=== PATIENT | male | born 1995 | race African-American/Black ===

== ENCOUNTER 2021-08-18 21:29 | Emergency (ER) | payer OTHER ==
[2021-08-18 21:38] VITALS: BP 132/71; PULSE 92; RESP 19; TEMP 99
[2021-08-18] MEDS ORDERED: FLUORESCEIN STRIPS 1 MG STRIP RIGHT EYE ONE (22:15)
[2021-08-18] MEDS ORDERED: PROPARACAINE 0.5% OPHTH DROPS 15 ML BTL RIGHT EYE STA (22:15)
--- NOTE | 2021-08-18 23:15 | ED ---
General Adult HPI - General Chief complaint: Eye Problems Stated complaint: RT eye pain Time Seen by Provider: 08/18/21 22:01 Source: patient, RN notes reviewed Mode of arrival: ambulatory Limitations: no limitations - History of Present Illness Initial comments: 26-year-old male presents to emergency Department with complaints of right eye irritation, onset 11:00 this morning. Patient is concerned about possible foreign body. He states he was wearing contacts at work today, as well as his safety glasses. Patient reports removing contacts prior to arrival and attempting to flush the eye. He describes discomfort as constant irritation. Patient denies fever, chills, headache, and vision changes. - Related Data Previous Rx's Medication Instructions Recorded Ofloxacin 0.3% Ophth Soln [Ocuflox 1 drops RIGHT EYE QID 10 Days #5 ml 08/19/21 Ophth Soln] Allergies Allergy/AdvReac Type Severity Reaction Status Date / Time No Known Allergies Allergy Verified 08/18/21 21:34 Review of Systems ROS Statement: Those systems with pertinent positive or pertinent negative responses have been documented in the HPI. ROS Other: All systems not noted in ROS Statement are negative. Past Medical History Past Medical History: No Reported History History of Any Multi-Drug Resistant Organisms: None Reported Past Surgical History: No Surgical Hx Reported Smoking Status: Never smoker Past Alcohol Use History: None Reported Past Drug Use History: None Reported General Exam Limitations: no limitations (Well-developed, well-nourished male in no acute distress. Initial temperature 99.0, pulse 92, respirations 16, blood pressure 132/71, pulse ox 99% on room air.) General appearance: alert, in no apparent distress Eye exam: Present: PERRL, EOMI. Absent: periorbital swelling, periorbital tenderness Pupils: Present: normal accommodation Expanded Eyelids: Normal Inspection: Bilateral Pupils: Regular, Round: Bilateral Sclera/Conjunctival: Injection: Right Visual acuity (R) = 20/: 60 Visual acuity (L) = 20/: 60 With correction: No Respiratory exam: Present: normal lung sounds bilaterally. Absent: respiratory distress, wheezes, rales, rhonchi, stridor Cardiovascular Exam: Present: regular rate, normal rhythm, normal heart sounds. Absent: systolic murmur, diastolic murmur, rubs, gallop, clicks Neurological exam: Present: alert, oriented X3, CN II-XII intact Skin exam: Present: warm, dry, intact, normal color. Absent: rash Course Vital Signs 08/18/21 21:30 Temperature 99.0 F Pulse Rate 92 Respiratory 19 Rate Blood Pressure 132/71 O2 Sat by Pulse 99 Oximetry Procedures - Procedures Initial comment: One drop of Alcaine instilled into the right eye. Fluorescein staining applied; eye examined with Wood's lamp. Focal area of uptake noted centrally. Eye thoroughly irrigated, then restrained and reexamined; same focal area of uptake noted. Findings discussed with patient and significant other. Eye care reviewed at length; instructed to refrain from further contact use until evaluated by ophthalmology. Medical Decision Making - Medical Decision Making 26-year-old male was evaluated for complaint of right eye irritation. Patient had removed his contact prior to arrival; was concerned about possible foreign body. Visual acuity was obtained, however patient did not bring his glasses therefore was unable to view the eye chart as he normally would at baseline. Fluorescein stain Saturday and was examined under Ch lamp and focal area of uptake noted centrally. Findings were discussed with patient. TD and antibiotic eye drops were recommended, patient is agreeable with this plan. Instructed to follow up with ophthalmology as soon as possible. Patient verbalizes understanding. This patient's care was discussed with my attending Dr. Augustine. Disposition Clinical Impression: Corneal abrasion, right Disposition: HOME SELF-CARE Condition: Stable Instructions (If sedation given, give patient instructions): Corneal Abrasion (ED) Additional Instructions: Do not rub your eye. Follow-up with ophthalmology for recheck; call first thing Saturday. Please do not wear contacts until you have been cleared by ophthalmology. Continue wearing safety glasses when at work Return to the emergency department with any new, worsening, or concerning symptoms. Prescriptions: Ofloxacin 0.3% Ophth Soln [Ocuflox Ophth Soln] 1 drops RIGHT EYE QID 10 Days #5 ml Is patient prescribed a controlled substance at d/c from ED?: No Referrals: None,Stated [Primary Care Provider] - 1-2 days Melquiades Lei MD [STAFF PHYSICIAN] - 1-2 days Time of Disposition: 00:03
[2021-08-18] MEDS ORDERED: DIPH,PERTUS(ACELL)TETVAC-LF 0.5 ML VIAL IM ONE (23:54)
[2021-08-18] MEDS ORDERED: OFLOXACIN 0.3% OPHTH DROPS 5 ML BOTTLE RIGHT EYE STA (23:55)
== END 2021-08-19 00:26 | disposition home or self-care (01) ==
LOC: EC 21:29
DX: S05.01XA Injury of conjunctiva and corneal abrasion without foreign body, right eye, initial encounter (principal); X58.XXXA Exposure to other specified factors, initial encounter
CPT/HCPCS: 90471; 90715; 99283

== ENCOUNTER → 2021-11-28 | Outpatient (CLI) | payer OTHER | END | disposition home or self-care (01) | LOC: LABWHC1 16:03 | PROVIDERS: ATTEND Family Medicine | DX: Z20.822 Contact with and (suspected) exposure to COVID-19 (principal); R50.9 Fever, unspecified; M79.10 Myalgia, unspecified site | CPT/HCPCS: U0003; C9803 ==

== ENCOUNTER → 2024-05-05 | Outpatient (CLI) | payer OTHER ==
--- NOTE | 2024-05-05 16:51 | CT ---
EXAMINATION TYPE: CT abdomen pelvis w con CT DLP: 642.5 mGycm, Automated exposure control for dose reduction was used. DATE OF EXAM: 05/05/2024 4:24 PM COMPARISON: None CLINICAL INDICATION:Male, 28 years old with history of R10.84 GEN ABD PAIN R53.83 FATIGUE; Abdominal pain and fatigue x2 weeks. TECHNIQUE: Standard CT of the abdomen and pelvis following the administration of 100 cc of Isovue 3 00 IV contrast material and oral contrast. Coronal and sagittal reformats were performed. FINDINGS: LOWER CHEST: Unremarkable ABDOMEN LIVER: Unremarkable GALLBLADDER AND BILE DUCTS: Unremarkable. PANCREAS: Unremarkable. SPLEEN: Unremarkable. ADRENAL GLANDS: Unremarkable. KIDNEYS AND URETERS: No evidence of hydronephrosis or renal calculus. The kidneys enhance symmetrical ly. Contrast is demonstrated within both collecting systems on the delayed phase. PELVIS BLADDER: Unremarkable REPRODUCTIVE: Unremarkable. ABDOMEN & PELVIS STOMACH AND BOWEL: Stomach and duodenum are unremarkable. No focal bowel wall thickening or surroundi ng inflammatory changes. Enteric contrast reaches the descending colon. The appendix is within normal limits. No evidence of bowel obstruction. PERITONEUM: No evidence of pneumoperitoneum or free fluid. VASCULATURE: No evidence of aortic aneurysm. MUSCULOSKELETAL: No acute osseous abnormalities. Lumbarization of the S1 vertebral body. Bilateral L5 pars defects without anterolisthesis. LYMPH NODES: No gross evidence for lymphadenopathy. SOFT TISSUE/ABDOMINAL WALL: Unremarkable IMPRESSION: No CT evidence for acute process.
== END | disposition home or self-care (01) ==
LOC: RADCTMAIN 14:21
PROVIDERS: ATTEND Family Medicine
DX: R10.84 Generalized abdominal pain (principal); R42 Dizziness and giddiness
CPT/HCPCS: 74177; Q9967